=== PATIENT | male | born 1985 | race Two or more races ===

== ENCOUNTER 2024-09-23 11:25 | Emergency (ER) | payer MEDICAID, SELFPAY ==
[2024-09-23 11:27] VITALS: BMI 28.0
[2024-09-23 11:37] VITALS: BP 148/80; PULSE 63; RESP 18; TEMP 37.3; O2SAT 98
--- NOTE | 2024-09-23 11:42 | EDNOTE_ITS ---
ED Extremity Problem RME/HPI General Chief complaint: Extremity Problem,Nontraumatic Stated complaint: BLEEDING FROM RIGHT LEG Time Seen by Provider: 09/23/24 11:27 Arrival date/time: 09/23/24 11:25 Limitations: no limitations RME / HPI RME / HPI Narrative: 39 year old male with a history of diabetes and varicose veins. Noted some mild bleeding at his right lower leg at one of his varicose veins today, now reso lved. Does not recall trauma or injury. Does not recall his last tdap. He has no other complaints. Related Data Allergies Allergy/AdvReac Type Severity Reaction Status Date / Time No Known Allergies Allergy Verified 09/23/24 11:27 Review of Systems Review of Systems Systems Reviewed: All systems reviewed, normal except as documented ED Exam General Limitations: Present no limitations General appearance: Present alert and in no apparent distress Head Head exam: Present atraumatic Eye Eye exam: Present normal appearance, PERRL and EOMI ENT ENT exam: Present normal exam, normal oropharynx and mucous membranes moist Neck Neck exam: Present normal inspection, full ROM and trachea midline Chest Chest inspection: Present normal inspection and symmetric chest wall rise Respiratory Respiratory exam: Present normal lung sounds bilaterally Cardiovascular Cardiovascular exam: Present regular rate, normal rhythm and normal heart sounds Abdominal Exam Abdominal exam: Present soft and normal bowel sounds Extremities Exam Extremities exam: Present normal inspection and full ROM Back Exam Back exam: Present normal inspection and full ROM Neurological Exam Neurological exam: Present alert and oriented X3 Psychiatric Psychiatric exam: Present normal affect and normal mood Skin Skin exam: Present warm, dry, normal color and other (2 mm superficial abrasion at the right lower leg. No active bleeding. ) Course Quality Measures none Orders Category Date Time Status CBC Stat Lab 09/23/24 11:42 Completed CMP [Comprehensive Metabolic Panel] Stat Lab 09/23/24 11:42 Completed TET,DIP/PERT AC (Adult)-Tdap [Boostrix Adult (Tdap) Med 09/23/24 11:29 Discontinued Vacc] 0.5 ml IMI .ONCE ONE Vital Signs Vital signs: Vital Signs Temperature 99.2 F 09/23/24 11:37 Pulse Rate 63 09/23/24 11:37 Respiratory Rate 18 09/23/24 11:37 Blood Pressure 148/80 H 09/23/24 11:37 Pulse Oximetry (%) 98 09/23/24 11:37 Oxygen Delivery Method Room Air 09/23/24 11:37 Extremity Problem MDM Narrative MDM Narrative:: 39 year old male with a history of diabetes and varicose veins. Noted some mild bleeding at his right lower leg at one of his varicose veins today, now resolved. Does not recall trauma or injury. Does not recall his last tdap. He has no other complaints. On exam he is non-toxic appearing. VSS. 2 mm superficial abrasion at the right lower leg. No active bleeding. A dressing was applied. His CBC and CMP are unremarkable. He will be discharged from the ED. Return here for any worsening changes including bleeding or signs of infection. Patient data External records reviewed:: None Clinical information provided by:: patient Social determinants that could affect healthcare access:: none Patient has the following chronic illnesses:: DM, varicose veins How is presenting disease/condition affected by chronic disease/condition?: uneffected by Evaluation data The following diagnostics were reviewed and interpreted by me:: lab results (cbc/cmp are unremarkable) Lab and/or radiology exams considered but not ordered:: n/a Interpretation Summary: unremarkalbe Medications / Prescriptions Medications or Prescriptions considered but not ordered:: n/a Medication administrations:: Medication Administration History Discontinued Medications Diphtheria/Tetanus/Acell Pertussis (Diphth,Pertuss(Acell),Tet Vac 0.5 Ml Syr- Adult) 0.5 ml IMi .ONCE ONE Stop: 09/23/24 11:30 Last Admin: 09/23/24 13:52 Dose: 0.5 ml Documented By: see above Consultations Consultation(s) initiated? (list below): No Diagnosis Most likely diagnosis given after review of the tests above:: leg abrasion Admission Indicated Admission indicated?: not indicated Admission Request Was there a request for admission?: No Disposition Plan Disposition Plan: Discharge Discharge Attestation Discharge Attestation: The patient and all family members were given an opportunity to ask questions and understood the discharge instructions. Discharge instructions specifically effects, indications for sooner follow up or return to the emergency department, and the expected course of current diagnosis. Patient condition: Stable Discharge Plan Plan Patient Disposition: HOME (Self Care) Patient condition on transfer: Stable Problem List Clinical Impression: Abrasion Patient/Caregiver Discharge Instructions Additional Instructions: Continue wound care. Follow up with your doctor as needed. Return here as needed for any worsening bleeding or signs of infection. Print Language: Luxem[place] Stand Alone Forms: Beth Award Info., Patient Portal Info Letter
[2024-09-23 11:49] LABS: Basophils # (Auto) 0.0 Thou/mm3 (0.0-0.2); Basophils % (Auto) 1 % (0-2.5); Eosinophils # (Auto) 0.0 Thou/mm3 (0.0-0.5); Eosinophils % (Auto) 1 % (0-10); Hematocrit 40.6 % (41.0-53.0); Hemoglobin 15.7 g/dL (13.5-16.0); Immature Granulocytes Auto 0.03 Thou/mm3 (0.00-0.00); Lymphocytes # (Auto) 1.8 Thou/mm3 (1.0-4.8); Lymphocytes % (Auto) 31 % (10-50); Mean Corpuscular HGB Conc 38.7 g/dl (31.0-37.0); Mean Corpuscular Hemoglobin 34.1 pg (25.0-35.0); Mean Corpuscular Volume 88 fL (80-100); Monocytes # (Auto) 0.4 Thou/mm3 (0.0-0.8); Monocytes % (Auto) 7 % (0-12); Neutrophils # (Auto) 3.5 Thou/mm3 (1.8-7.7); Neutrophils % (Auto) 61 % (37-80); Nucleated Red Blood Cell # 0.00 Thou/mm3 (0.00-0.00); Nucleated Red Blood Cell % 0 /100 WBC (0); Platelet Count 188 Thou/mm3 (140-440); RDW Standard Deviation 38.5 fL (35.1-43.9); Red Blood Count 4.61 Miln/mm3 (4.50-5.90); White Blood Count 5.8 Thou/mm3 (3.8-10.6)
[2024-09-23 12:16] LABS: Alanine Aminotransferase 39 U/L (10-49); Albumin, Serum 4.7 gm/dL (3.5-5.0); Albumin/Globulin Ratio 1.7 (1.2-2.2); Alkaline Phosphatase 129 U/L (46-116); Anion Gap 11 (7-16); Aspartate Amino Transferase 22 U/L (0-34); BUN/Creatinine Ratio 14 Ratio (12-20); Bilirubin,Total 0.9 mg/dL (0.3-1.2); Blood Urea Nitrogen 11 mg/dL (9-23); Calcium 9.4 mg/dL (8.3-10.6); Calcium (Corrected) 9.4 mg/dL (8.5-10.1); Carbon Dioxide 24.6 mMol/L (20.0-31.0); Chloride 103 mMol/L (98-107); Creatinine (Component) 0.8 mg/dL (0.6-1.3); Estimated Creatinine Clearance 136.2 mL/min (>60); Globulin 2.8 gm/dL (2.3-3.5); Glucose 207 mg/dL (74-106); Osmolality,Calculated 282 (275-295); Potassium 3.9 mMol/L (3.4-5.1); Sodium 139 mMol/L (136-145); Total Protein 7.5 gm/dL (5.7-8.2); eGFR > 60 See Note
[2024-09-23] MEDS: DIPHTH,PERTUSS(ACELL),TET VAC 0.5 ML SYR- ADULT IMi (13:52)
== END 2024-09-23 14:31 | disposition home or self-care (01) ==
LOC: SERX 12:35
PROVIDERS: Emergency Provider Physician Assistant Medical; PCP Family Medicine
DX: S80.811A Abrasion, right lower leg, initial encounter (principal); X58.XXXA Exposure to other specified factors, initial encounter; E11.9 Type 2 diabetes mellitus without complications
CPT/HCPCS: 36415; 80053; 85025; 90715; 99283